=== PATIENT | female | born 1950 | race Caucasian/White ===

== ENCOUNTER 2024-12-08 17:17 | Emergency (ER) | payer MEDICARE, OTHER ==
[~2024-12-08] VITALS: Ht 160 cm; Wt 53.0 kg
[2024-12-08] MEDS: IPRATROPIUM 0.5 MG/ALBUTEROL 2.5 MG INH SOL UD 3 ML NEB ONE (17:54)
[2024-12-08 18:06] LABS: BASO # 0.0 10^3/uL (0.0-0.2); BASO % 0.8 % (0.0-1.0); EOS # 0.1 10^3/uL (0.0-0.5); EOS % 1.6 % (0.0-3.0); LYMPH # 1.1 10^3/uL (1.5-5.0); LYMPH % 22.2 % (24.0-44.0); MONO # 0.4 10^3/uL (0.0-0.8); MONO % 8.5 % (2.0-8.0); NEUTROPHILS # 3.3 10^3/uL (1.5-8.5); NEUTROPHILS % 66.7 % (36.0-66.0); PLATELET COUNT, AUTOMATED 126 10^3/uL (150-450)
[2024-12-08] MEDS ORDERED: ISOVUE-370 76% 100 ML VIAL As Ordered ONE (18:08)
[2024-12-08 18:18] LABS: CK-MB VALUE MASS 2.2 NG/ML (<3.6)
[2024-12-08 18:20] LABS: ALT/SGPT 10 U/L (7.0-40); AST/SGOT 42 U/L (<34); CALCIUM LEVEL 8.5 MG/DL (8.3-10.6); CARBON DIOXIDE LEVEL 24 MMOL/L (20-31); CHLORIDE LEVEL 105 MMOL/L (98-107); CREATININE FOR GFR 1.19 MG/DL (0.55-1.30); GLOMERULAR FILTRATION RATE 47.7 (>39); POTASSIUM SERUM 4.1 MMOL/L (3.5-5.1); SODIUM LEVEL 140 MMOL/L (136-145)
[2024-12-08 18:22] LABS: FREE T4 1.11 NG/DL (0.89-1.76)
[2024-12-08 18:27] LABS: CPK CREATINE PHOSPHOKINASE 62 U/L (34-145); MB/CK RELATIVE INDEX 3.54 (< OR =4)
[2024-12-08 19:22] LABS: CK-MB VALUE MASS 1.5 NG/ML (<3.6)
[2024-12-08 19:24] LABS: CPK CREATINE PHOSPHOKINASE 52.0 U/L (34-145); MB/CK RELATIVE INDEX 2.88 (< OR =4)
[2024-12-08] MEDS ORDERED: EZET10TA21 PO (20:31)
[2024-12-08] MEDS ORDERED: ASPI81CH33 PO (20:31)
[2024-12-08] MEDS ORDERED: AMLO25TA PO (20:31)
[2024-12-08] MEDS ORDERED: LOSA100T46 PO (20:31)
[2024-12-08] MEDS ORDERED: OXYB5TAB14 PO (20:31)
[2024-12-08] MEDS: KETOROLAC 30 MG/ML 1 ML VIAL IV ONE (21:40)
[2024-12-08] MEDS: hydrALAZINE 20 MG/ML 1 ML VIAL IV ONE (23:56)
[2024-12-09] MEDS ORDERED: PRED20TA PO (00:12)
[2024-12-09 00:43] VITALS: BP 152/76; TEMP 97.9; O2SAT 97
== END 2024-12-09 00:45 | disposition home or self-care (01) ==
LOC: EDBD 17:17 → M ED 17:17
DX: R07.89 Other chest pain (principal); I44.0 Atrioventricular block, first degree; I45.10 Unspecified right bundle-branch block; I45.81 Long QT syndrome; I10 Essential (primary) hypertension; E78.5 Hyperlipidemia, unspecified; J44.9 Chronic obstructive pulmonary disease, unspecified; F10.10 Alcohol abuse, uncomplicated; Z87.891 Personal history of nicotine dependence; Z86.73 Personal history of transient ischemic attack (TIA), and cerebral infarction without residual deficits; Z88.8 Allergy status to other drugs, medicaments and biological substances; Z79.1 Long term (current) use of non-steroidal anti-inflammatories (NSAID); Z79.52 Long term (current) use of systemic steroids; Z79.899 Other long term (current) drug therapy
CPT/HCPCS: 71045; 71275; 80047; 80048; 80076; 82550; 82553; 83605; 83690; 83880; 84439; 84443; 84484; 85025; 87486; 87581; 87633; 87798; 93005; 93041; 94640; 94760; 96374; 96375; 99285; J0360; J1885; Q9967

== ENCOUNTER → 2025-01-10 | Outpatient (REF) | payer OTHER ==
[~2025-01-10] MED LIST: AMLO25TA PO; ASPI81CH33 PO; EZET10TA57 PO; LOSA100T46 PO; OXYB5TAB14 PO; PRED20TA PO
== END ==
LOC: M LAB REF 13:18
PROVIDERS: ATTEND Physician Assistant
DX: Z95.0 Presence of cardiac pacemaker (principal)

== ENCOUNTER → 2025-01-10 | Outpatient (CLI) | payer OTHER | LOC: M EKG 16:01 | PROVIDERS: ATTEND Physician Assistant | DX: Z95.0 Presence of cardiac pacemaker (principal); Z53.9 Procedure and treatment not carried out, unspecified reason ==

== ENCOUNTER 2025-02-14 06:33 | Inpatient (IN) | payer OTHER ==
[~2025-02-14] VITALS: Ht 157.5 cm; Wt 52.3 kg
[2025-02-14] MEDS: IPRATROPIUM 0.5 MG/ALBUTEROL 2.5 MG INH SOL UD 3 ML NEB ONE (07:23)
[2025-02-14 07:26] LABS: BASO # 0.1 10^3/uL (0.0-0.2); BASO % 0.5 % (0.0-1.0); EOS # 0.0 10^3/uL (0.0-0.5); EOS % 0.1 % (0.0-3.0); LYMPH # 1.0 10^3/uL (1.5-5.0); LYMPH % 5.2 % (24.0-44.0); MONO # 0.7 10^3/uL (0.0-0.8); MONO % 3.6 % (2.0-8.0); NEUTROPHILS # 17.1 10^3/uL (1.5-8.5); NEUTROPHILS % 90.0 % (36.0-66.0); PLATELET COUNT, AUTOMATED 197 10^3/uL (150-450)
[2025-02-14] MEDS: TETANUS/DIPHTH/ACEL. PERTUSSIS 0.5 ML SYR IM.IMMUN ONE (07:29)
[2025-02-14 07:41] LABS: ABG BASE EXCESS -2.5 (-2.0-2.0); ABG HCO3 17.9 MMOL/L (22.0-26.0); ABG O2 SATURATION 99.0 % (95.0-99.0); ABG PARTIAL PRESSURE CO2 20.8 mmHg (35.0-45.0); ABG PARTIAL PRESSURE O2 165.1 mmHg (75.0-100.0); ABG STANDARD HCO3 22.4 MMOL/L. (22.0-26.0); ABG TOTAL CO2 18.6 MMOL/L (23.0-31.0); ABG pH (ARTERIAL) 7.553 UNITS (7.350-7.450)
[2025-02-14 07:50] LABS: ALT/SGPT 21 U/L (7.0-40); AST/SGOT 55 U/L (<34); CALCIUM LEVEL 9.5 MG/DL (8.3-10.6); CARBON DIOXIDE LEVEL 20 MMOL/L (20-31); CHLORIDE LEVEL 94 MMOL/L (98-107); CK-MB VALUE MASS 3.6 NG/ML (<3.6); CPK CREATINE PHOSPHOKINASE 110 U/L (34-145); CREATININE FOR GFR 1.64 MG/DL (0.55-1.30); GLOMERULAR FILTRATION RATE 32.5 (>39); MB/CK RELATIVE INDEX 3.27 (< OR =4); POTASSIUM SERUM 4.0 MMOL/L (3.5-5.1); SODIUM LEVEL 129 MMOL/L (136-145)
[2025-02-14 07:51] LABS: INR 0.95
[2025-02-14] MEDS: NS (Normal Saline) 0.9% 1,000 ML IV ONE (08:48)
[2025-02-14 09:01] LABS: APPEARANCE, URINE CLEAR (CLEAR); BACTERIA, URINE AUTO NEGATIVE (NEGATIVE); BILIRUBIN, URINE AUTO NEGATIVE (NEGATIVE); BLOOD, URINE BLOOD NEGATIVE (NEGATIVE); GLUCOSE, URINE (UA) AUTO NEGATIVE (NEGATIVE); KETONE, URINE AUTO NEGATIVE (NEGATIVE); LEUKOCYTE ESTERASE, URINE AUTO NEGATIVE (NEGATIVE); MUCUS, URINE SMALL (NEGATIVE); NITRITE, URINE AUTO NEGATIVE (NEGATIVE); PROTEIN, URINE AUTO 2+ mg/dL (NEGATIVE); RBC, URINE AUTO 1 /HPF (0-3); SPECIFIC GRAVITY URINE AUTO 1.010 (1.002-1.035); SQUAMOUS EPITHELIAL CELL UR AU 2 /HPF (0-6); UROBILINOGEN, URINE AUTO 0.2 mg/dL (0.0-2.0); WBC, URINE AUTO 2 /HPF (0-3)
[2025-02-14] MEDS: LIDOCAINE 2% 5 ML JELLY UROJET TOP ONE ×2 (09:03→09:04)
[2025-02-14] MEDS: PIPERACILLIN/TAZOBACTAM SOD 4.5 GM in DEXTROSE 5% (D5W) ADV/MINI-BAG 50 ML IV ONE (09:05)
[2025-02-14 09:11] LABS: FREE T4 1.40 NG/DL (0.89-1.76)
[2025-02-14 09:17] LABS: SODIUM,RANDOM URINE 80.0 MMOL/L
[2025-02-14 09:19] LABS: CK-MB VALUE MASS 2.8 NG/ML (<3.6)
[2025-02-14 09:34] LABS: OSMOLALITY SERUM 282 MOSM/KG (280-301)
[2025-02-14 09:38] LABS: CPK CREATINE PHOSPHOKINASE 109.0 U/L (34-145); MB/CK RELATIVE INDEX 2.56 (< OR =4)
[2025-02-14] MEDS: NS (Normal Saline) 0.9% 600 ML IV ONE (09:38)
[2025-02-14 09:39] LABS: CK-MB VALUE MASS 2.8 NG/ML (<3.6)
[2025-02-14 09:41] LABS: CPK CREATINE PHOSPHOKINASE 100.0 U/L (34-145); MB/CK RELATIVE INDEX 2.8 (< OR =4)
[2025-02-14] MEDS ORDERED: MED REC IN PROGRESS XX SCH (10:25)
[2025-02-14] MEDS ORDERED: REFRSOL OU (10:40)
[2025-02-14] MEDS ORDERED: B-12100021 PO (10:40)
[2025-02-14] MEDS ORDERED: COMBAER6 INH (10:40)
[2025-02-14] MEDS ORDERED: ASPI81TA26 PO (10:40)
[2025-02-14] MEDS ORDERED: AMLO1TAB25 PO (10:40)
[2025-02-14] MEDS ORDERED: HOME MED LIST COMPLETE! XX SCH (10:45)
[2025-02-14] MEDS ORDERED: PIPERACILLIN/TAZOBACTAM SOD 3.375 GM in DEXTROSE 5% (D5W) ADV/MINI-BAG 50 ML IV SCH (10:55)
[2025-02-14] MEDS ORDERED: COMBIVENT RESPIMAT 100-20 MCG INHALER 4 GM INH PRN (11:00)
[2025-02-14 11:20] LABS: BASO # 0.0 10^3/uL (0.0-0.2); BASO % 0.1 % (0.0-1.0); EOS # 0.0 10^3/uL (0.0-0.5); EOS % 0.0 % (0.0-3.0); LYMPH # 0.5 10^3/uL (1.5-5.0); LYMPH % 3.4 % (24.0-44.0); MONO # 0.2 10^3/uL (0.0-0.8); MONO % 1.2 % (2.0-8.0); NEUTROPHILS # 13.0 10^3/uL (1.5-8.5); NEUTROPHILS % 94.7 % (36.0-66.0); PLATELET COUNT, AUTOMATED 183 10^3/uL (150-450)
[2025-02-14 11:20] LABS: PLATELET COUNT, AUTOMATED 187 10^3/uL (150-450)
[2025-02-14 11:47] LABS: CALCIUM LEVEL 8.5 MG/DL (8.3-10.6); CARBON DIOXIDE LEVEL 17 MMOL/L (20-31); CHLORIDE LEVEL 101 MMOL/L (98-107); CREATININE FOR GFR 1.61 MG/DL (0.55-1.30); GLOMERULAR FILTRATION RATE 33.2 (>39); POTASSIUM SERUM 3.9 MMOL/L (3.5-5.1); SODIUM LEVEL 133 MMOL/L (136-145)
[2025-02-14 12:03] LABS: C REACTIVE PROTEIN QUANTITATIV 0.76 MG/DL (<1.0)
[2025-02-14] MEDS: NS (Normal Saline) 0.9% 1,000 ML IV SCH (12:11)
[2025-02-14] MEDS: amLODIPine 10 MG TAB PO ONE (12:11)
[2025-02-14 12:33] LABS: THYROID PEROXIDASE ANTIBODY < 28.0 U/ML (<60.0)
[2025-02-14] MEDS: LABETALOL 100 MG/20 ML VIAL IV STA (13:25)
[2025-02-14] MEDS: HYDROMORPHONE HCL 0.5 MG/0.5 ML SYRINGE IV PRN (14:56)
[2025-02-14] MEDS: LABETALOL 100 MG/20 ML VIAL IV PRN (14:56)
[2025-02-14 15:45] VITALS: BP 164/71; TEMP 99.7; O2SAT 100
[2025-02-14] MEDS: PIPERACILLIN/TAZOBACTAM SOD 2.25 GM in DEXTROSE 5% (D5W) ADV/MINI-BAG 50 ML IV SCH (16:37)
[2025-02-14 18:45] LABS: MAGNESIUM LEVEL 1.2 MG/DL (1.8-2.4)
[2025-02-14 20:00] VITALS: BP 117/56; TEMP 99.1; O2SAT 100
[2025-02-14] MEDS: MAG SULF 1GM/100ML (MAG RUN) 1 GM in IV 1 EA IV SCH (20:27)
[2025-02-14] MEDS: amLODIPine 10 MG TAB PO SCH (20:28)
[2025-02-14] MEDS: HEPARIN SOD 5000 UNITS/ML 1 ML VIAL/SYRINGE SQ SCH (21:40)
[2025-02-15] VITALS (8 sets, daily range): BP systolic 101–156; BP diastolic 52–72; TEMP 98.2–99.3; O2SAT 96–100
[2025-02-15 04:50] LABS: PLATELET COUNT, AUTOMATED 156 10^3/uL (150-450)
[2025-02-15 05:12] LABS: CALCIUM LEVEL 7.8 MG/DL (8.3-10.6); CARBON DIOXIDE LEVEL 20.0 MMOL/L (20-31); CHLORIDE LEVEL 103.0 MMOL/L (98-107); CREATININE FOR GFR 1.89 MG/DL (0.55-1.30); GLOMERULAR FILTRATION RATE 27.4 (>39); POTASSIUM SERUM 4.3 MMOL/L (3.5-5.1); SODIUM LEVEL 135.0 MMOL/L (136-145)
[2025-02-15] MEDS: ASPIRIN 81 MG ENTERIC TABLET PO SCH (08:14)
[2025-02-15] MEDS: EZETIMIBE 10 MG TABLET PO SCH (08:14)
[2025-02-16] VITALS (7 sets, daily range): BP systolic 129–163; BP diastolic 61–74; TEMP 97.3–98.8; O2SAT 97–100
[2025-02-16] MEDS: HYDROMORPHONE HCL 0.5 MG/0.5 ML SYRINGE IV PRN (01:06)
[2025-02-16] MEDS ORDERED: MIDAZOLAM INJ 2 MG/2 ML VIAL As Ordered ONE (08:24)
[2025-02-16] MEDS ORDERED: SUGAMMADEX SODIUM 500 MG/5 ML VIAL As Ordered ONE (08:25)
[2025-02-16] MEDS ORDERED: ROCURONIUM BROMIDE 50MG/5ML VIAL As Ordered ONE (08:25)
[2025-02-16] MEDS ORDERED: dexAMETHasone 4 MG/ML 1 ML VIAL As Ordered ONE (08:26)
[2025-02-16] MEDS ORDERED: LIDOCAINE 2% 100 MG/5 ML SDV (FOR ANES.) As Ordered ONE (08:26)
[2025-02-16] MEDS ORDERED: ONDANSETRON 4MG/2ML VIAL As Ordered ONE (08:26)
[2025-02-16] MEDS ORDERED: dexmedeTOMIDine (4 MCG/ML) 200 MCG/50 ML BTL As Ordered ONE (08:31)
[2025-02-16] MEDS ORDERED: ACETAMINOPHEN 1000MG/100ML IV BAG As Ordered ONE (08:33)
[2025-02-16 09:29] LABS: BASO # 0.1 10^3/uL (0.0-0.2); BASO % 0.5 % (0.0-1.0); EOS # 0.0 10^3/uL (0.0-0.5); EOS % 0.3 % (0.0-3.0); LYMPH # 1.3 10^3/uL (1.5-5.0); LYMPH % 11.5 % (24.0-44.0); MONO # 0.8 10^3/uL (0.0-0.8); MONO % 6.7 % (2.0-8.0); NEUTROPHILS # 9.3 10^3/uL (1.5-8.5); NEUTROPHILS % 80.7 % (36.0-66.0); PLATELET COUNT, AUTOMATED 158 10^3/uL (150-450)
[2025-02-16 10:03] LABS: CALCIUM LEVEL 8.4 MG/DL (8.3-10.6); CARBON DIOXIDE LEVEL 19.0 MMOL/L (20-31); CHLORIDE LEVEL 104.0 MMOL/L (98-107); CREATININE FOR GFR 1.3 MG/DL (0.55-1.30); GLOMERULAR FILTRATION RATE 42.9 (>39); POTASSIUM SERUM 3.4 MMOL/L (3.5-5.1); SODIUM LEVEL 135.0 MMOL/L (136-145)
[2025-02-16] MEDS ORDERED: HYDROMORPHONE HCL 0.5 MG/0.5 ML SYRINGE IV PRN (11:35)
[2025-02-16] MEDS ORDERED: ONDANSETRON 4MG/2ML VIAL IV PRN (11:35)
[2025-02-16] MEDS: LR 1,000 ML IV SCH (14:22)
[2025-02-16] MEDS: POTASSIUM CHLORIDE 10MEQ SR TABLET PO ONE (14:22)
[2025-02-16] MEDS: ceFAZolin SODIUM 2 GM in DEXTROSE 5% (D5W) ADV/MINI-BAG 50 ML IV SCH (18:13)
[2025-02-17] VITALS (14 sets, daily range): BP systolic 142–183; BP diastolic 64–87; TEMP 97.9–100; O2SAT 97–100
[2025-02-17] MEDS: ONDANSETRON 4MG/2ML VIAL IV PRN (01:52)
[2025-02-17 05:46] LABS: PLATELET COUNT, AUTOMATED 143 10^3/uL (150-450)
[2025-02-17 09:40] LABS: IRON (FE) 17.0 UG/DL (50-170); PERCENT SATURATION 6.8 % (13.2-45.0)
[2025-02-17 12:09] LABS: CALCIUM LEVEL 8.3 MG/DL (8.3-10.6); CARBON DIOXIDE LEVEL 20.0 MMOL/L (20-31); CHLORIDE LEVEL 102.0 MMOL/L (98-107); CREATININE FOR GFR 1.19 MG/DL (0.55-1.30); GLOMERULAR FILTRATION RATE 47.7 (>39); POTASSIUM SERUM 4.2 MMOL/L (3.5-5.1); SODIUM LEVEL 135.0 MMOL/L (136-145)
[2025-02-17] MEDS: FERRIC CARBOXYMALTOSE INJ 750 MG, VIAL MATE ADAPTER 1 EACH in NS 100 ML IV ONE (13:20)
[2025-02-17] MEDS: METOPROLOL TART 50 MG TAB PO ONE (13:21)
[2025-02-17 15:54] LABS: BASO # 0.0 10^3/uL (0.0-0.2); BASO % 0.3 % (0.0-1.0); EOS # 0.1 10^3/uL (0.0-0.5); EOS % 0.5 % (0.0-3.0); LYMPH # 1.4 10^3/uL (1.5-5.0); LYMPH % 11.2 % (24.0-44.0); MONO # 1.0 10^3/uL (0.0-0.8); MONO % 8.1 % (2.0-8.0); NEUTROPHILS # 9.6 10^3/uL (1.5-8.5); NEUTROPHILS % 79.3 % (36.0-66.0); PLATELET COUNT, AUTOMATED 143 10^3/uL (150-450)
[2025-02-17] MEDS: METOPROLOL TART 25 MG TABLET PO SCH (20:33)
[2025-02-18] VITALS (7 sets, daily range): BP systolic 123–160; BP diastolic 70–82; TEMP 97.2–98.6; O2SAT 97–100
[2025-02-18 07:20] LABS: BASO # 0.0 10^3/uL (0.0-0.2); BASO % 0.3 % (0.0-1.0); EOS # 0.0 10^3/uL (0.0-0.5); EOS % 0.2 % (0.0-3.0); LYMPH # 1.1 10^3/uL (1.5-5.0); LYMPH % 7.2 % (24.0-44.0); MONO # 1.0 10^3/uL (0.0-0.8); MONO % 6.6 % (2.0-8.0); NEUTROPHILS # 13.0 10^3/uL (1.5-8.5); NEUTROPHILS % 85.1 % (36.0-66.0); PLATELET COUNT, AUTOMATED 191 10^3/uL (150-450)
[2025-02-18 07:45] LABS: CALCIUM LEVEL 8.6 MG/DL (8.3-10.6); CARBON DIOXIDE LEVEL 23 MMOL/L (20-31); CHLORIDE LEVEL 93 MMOL/L (98-107); CREATININE FOR GFR 0.96 MG/DL (0.55-1.30); GLOMERULAR FILTRATION RATE 61.7 (>39); POTASSIUM SERUM 3.8 MMOL/L (3.5-5.1); SODIUM LEVEL 129 MMOL/L (136-145)
[2025-02-18] MEDS: NS 500 ML IV ONE (09:03)
[2025-02-18 09:51] LABS: C REACTIVE PROTEIN QUANTITATIV 11.18 MG/DL (<1.0)
[2025-02-18 13:15] LABS: CALCIUM LEVEL 8.9 MG/DL (8.3-10.6); CARBON DIOXIDE LEVEL 25.0 MMOL/L (20-31); CHLORIDE LEVEL 95.0 MMOL/L (98-107); CREATININE FOR GFR 0.97 MG/DL (0.55-1.30); GLOMERULAR FILTRATION RATE 60.9 (>39); POTASSIUM SERUM 3.8 MMOL/L (3.5-5.1); SODIUM LEVEL 132.0 MMOL/L (136-145)
[2025-02-19 04:00] VITALS: BP 142/73; TEMP 97.9; O2SAT 100
[2025-02-19 08:00] VITALS: BP 143/75; TEMP 97.9; O2SAT 97
[2025-02-19 12:00] VITALS: BP 124/61; TEMP 98.1; O2SAT 97
[2025-02-19 12:51] LABS: CALCIUM LEVEL 8.6 MG/DL (8.3-10.6); CARBON DIOXIDE LEVEL 23.0 MMOL/L (20-31); CHLORIDE LEVEL 97.0 MMOL/L (98-107); CREATININE FOR GFR 1.06 MG/DL (0.55-1.30); GLOMERULAR FILTRATION RATE 54.8 (>39); POTASSIUM SERUM 3.9 MMOL/L (3.5-5.1); SODIUM LEVEL 130.0 MMOL/L (136-145)
[2025-02-19 12:54] LABS: BASO # 0.0 10^3/uL (0.0-0.2); BASO % 0.2 % (0.0-1.0); EOS # 0.1 10^3/uL (0.0-0.5); EOS % 0.9 % (0.0-3.0); LYMPH # 0.9 10^3/uL (1.5-5.0); LYMPH % 6.3 % (24.0-44.0); MONO # 1.1 10^3/uL (0.0-0.8); MONO % 7.4 % (2.0-8.0); NEUTROPHILS # 12.5 10^3/uL (1.5-8.5); NEUTROPHILS % 84.6 % (36.0-66.0)
[2025-02-19 16:00] VITALS: BP 144/70; TEMP 97.7; O2SAT 98
[2025-02-19 20:28] VITALS: BP 129/74; TEMP 98.1; O2SAT 96
[2025-02-20 00:18] VITALS: BP 134/66; TEMP 97.7; O2SAT 98
[2025-02-20 03:41] VITALS: BP 131/66; TEMP 97.7; O2SAT 97
[2025-02-20 05:55] LABS: PLATELET COUNT, AUTOMATED 254 10^3/uL (150-450)
[2025-02-20 08:00] VITALS: BP 131/62; TEMP 97.9; O2SAT 94
[2025-02-20 12:00] VITALS: BP 106/58; TEMP 97.7; O2SAT 93
[2025-02-20 16:00] VITALS: BP 131/74; TEMP 97.7; O2SAT 99
[2025-02-20 19:50] VITALS: BP 109/63; TEMP 97.7; O2SAT 96
[2025-02-21 05:25] VITALS: BP 120/62; TEMP 98.4; O2SAT 91
[2025-02-21 06:34] LABS: PLATELET COUNT, AUTOMATED 260 10^3/uL (150-450)
[2025-02-21 07:07] LABS: CALCIUM LEVEL 8.8 MG/DL (8.3-10.6); CARBON DIOXIDE LEVEL 25.0 MMOL/L (20-31); CHLORIDE LEVEL 100.0 MMOL/L (98-107); CREATININE FOR GFR 1.07 MG/DL (0.55-1.30); GLOMERULAR FILTRATION RATE 54.2 (>39); MAGNESIUM LEVEL 1.6 MG/DL (1.8-2.4); POTASSIUM SERUM 3.8 MMOL/L (3.5-5.1); SODIUM LEVEL 136.0 MMOL/L (136-145)
[2025-02-21] MEDS: MAG SULF 1GM/100ML (MAG RUN) 1 GM in IV 1 EA IV ONE (08:39)
[2025-02-21 09:22] VITALS: BP 96/53; TEMP 97.9; O2SAT 90
[2025-02-21 12:16] VITALS: BP 112/75; TEMP 97.9; O2SAT 99
[2025-02-21 15:50] VITALS: BP 108/71; TEMP 97.9; O2SAT 99
[2025-02-21] MEDS: PERCOCET 5MG/325MG TAB PO PRN (18:17)
[2025-02-21 19:38] VITALS: BP 113/72; TEMP 97.9; O2SAT 97
[2025-02-21] MEDS ORDERED: HYDROMORPHONE HCL 0.5 MG/0.5 ML SYRINGE IV PRN (23:00)
[2025-02-21 23:48] VITALS: BP 120/71; TEMP 97.7; O2SAT 97
[2025-02-22 03:24] VITALS: BP 119/69; TEMP 97.7; O2SAT 97
[2025-02-22 06:26] LABS: PLATELET COUNT, AUTOMATED 246 10^3/uL (150-450)
[2025-02-22 06:50] LABS: CALCIUM LEVEL 8.3 MG/DL (8.3-10.6); CARBON DIOXIDE LEVEL 27.0 MMOL/L (20-31); CHLORIDE LEVEL 97.0 MMOL/L (98-107); CREATININE FOR GFR 1.07 MG/DL (0.55-1.30); GLOMERULAR FILTRATION RATE 54.2 (>39); MAGNESIUM LEVEL 1.8 MG/DL (1.8-2.4); POTASSIUM SERUM 3.8 MMOL/L (3.5-5.1); SODIUM LEVEL 133.0 MMOL/L (136-145)
[2025-02-22 08:00] VITALS: BP 122/69; TEMP 97.8; O2SAT 99
[2025-02-22 12:00] VITALS: BP 126/66; TEMP 97.9; O2SAT 98
[2025-02-22 16:00] VITALS: BP 168/78; TEMP 98.4; O2SAT 100
[2025-02-22 20:00] VITALS: BP 164/87; TEMP 98.1; O2SAT 98
[2025-02-23] VITALS (7 sets, daily range): BP systolic 114–152; BP diastolic 66–92; TEMP 97.9–98.6; O2SAT 88–99
[2025-02-23 06:23] LABS: PLATELET COUNT, AUTOMATED 240 10^3/uL (150-450)
[2025-02-23] MEDS: ACETAMINOPHEN 325 MG TAB PO PRN (08:56)
[2025-02-24 04:00] VITALS: BP 141/80; TEMP 97.9; O2SAT 96
[2025-02-24 12:00] VITALS: BP 144/70; TEMP 98.4; O2SAT 89
[2025-02-24 20:00] VITALS: BP 138/73; TEMP 97.9; O2SAT 93
[2025-02-25] VITALS: BP 157/78; TEMP 97.9; O2SAT 94
[2025-02-25 04:00] VITALS: BP 155/82; TEMP 97.9; O2SAT 96
[2025-02-25 06:20] LABS: PLATELET COUNT, AUTOMATED 243 10^3/uL (150-450)
[2025-02-25 06:53] LABS: ALT/SGPT < 9 U/L (7.0-40); AST/SGOT 49 U/L (<34); CALCIUM LEVEL 8.6 MG/DL (8.3-10.6); CARBON DIOXIDE LEVEL 26 MMOL/L (20-31); CHLORIDE LEVEL 99 MMOL/L (98-107); CREATININE FOR GFR 1.20 MG/DL (0.55-1.30); GLOMERULAR FILTRATION RATE 46.9 (>39); MAGNESIUM LEVEL 1.6 MG/DL (1.8-2.4); POTASSIUM SERUM 4.2 MMOL/L (3.5-5.1); SODIUM LEVEL 134 MMOL/L (136-145)
[2025-02-25] MEDS: MAGNESIUM OXIDE 400 MG TAB PO SCH (09:12)
[2025-02-25] MEDS ORDERED: SALIVA SUBSTITUTE BTL MT PRN (09:50)
[2025-02-25 11:35] VITALS: BP 123/66; TEMP 97.9; O2SAT 94
[2025-02-25 20:27] VITALS: BP 152/73
[2025-02-26 04:19] VITALS: BP 156/81; TEMP 98.1; O2SAT 96
[2025-02-26 07:02] LABS: PLATELET COUNT, AUTOMATED 222 10^3/uL (150-450)
[2025-02-26 07:29] LABS: CALCIUM LEVEL 8.7 MG/DL (8.3-10.6); CARBON DIOXIDE LEVEL 26.0 MMOL/L (20-31); CHLORIDE LEVEL 98.0 MMOL/L (98-107); CREATININE FOR GFR 1.1 MG/DL (0.55-1.30); GLOMERULAR FILTRATION RATE 52.1 (>39); MAGNESIUM LEVEL 1.6 MG/DL (1.8-2.4); POTASSIUM SERUM 4.2 MMOL/L (3.5-5.1); SODIUM LEVEL 134.0 MMOL/L (136-145)
[2025-02-26] MEDS: LACTULOSE 20 GM/30 ML SYRUP UDC PO ONE (09:44)
[2025-02-26] MEDS: MIRALAX *UNIT DOSE* 17 GM PACKET PO PRN (09:44)
[2025-02-26] MEDS: SENNA 8.6 MG TAB PO PRN (09:44)
[2025-02-27 04:00] VITALS: BP 166/88; TEMP 98.9; O2SAT 99
[2025-02-27 09:35] VITALS: BP 136/65
[2025-02-27] MEDS ORDERED: METO1TAB87 PO (11:35)
[2025-02-27] MEDS ORDERED: ASPI81TA26 PO (11:35)
[2025-02-27] MEDS ORDERED: PERCOCET PO (11:35)
[2025-02-27] MEDS ORDERED: MIRA33506 PO (11:35)
[2025-02-27] MEDS ORDERED: MAGN400T33 PO (11:35)
[2025-02-27] MEDS ORDERED: ACET32TAB PO (11:35)
== END 2025-02-27 13:13 | DRG 480 ==
LOC: M ED 06:33 → M ED INP 10:20 → M ICU 15:23 → M MSPAV 02-17 15:40
PROVIDERS: ADMIT Internal Medicine; ATTEND Student in an Organized Health Care Education/Training Program
PROC: B246ZZZ Ultrasonography of Right and Left Heart (ICD-10-PCS; 2025-02-14)
PROC: 30233N1 Transfusion of Nonautologous Red Blood Cells into Peripheral Vein, Percutaneous Approach (ICD-10-PCS; 2025-02-16)
PROC: 0QSC36Z Reposition Left Lower Femur with Intramedullary Internal Fixation Device, Percutaneous Approach (ICD-10-PCS; principal; 2025-02-16 08:30)
DX: S72.412A Displaced unspecified condyle fracture of lower end of left femur, initial encounter for closed fracture (principal); G93.41 Metabolic encephalopathy; N17.9 Acute kidney failure, unspecified; I16.9 Hypertensive crisis, unspecified; E87.20 Acidosis, unspecified; D62 Acute posthemorrhagic anemia; I47.20 Ventricular tachycardia, unspecified; E87.1 Hypo-osmolality and hyponatremia; W10.8XXA Fall (on) (from) other stairs and steps, initial encounter; Y92.018 Other place in single-family (private) house as the place of occurrence of the external cause; Y93.89 Activity, other specified; Y99.8 Other external cause status; I12.9 Hypertensive chronic kidney disease with stage 1 through stage 4 chronic kidney disease, or unspecified chronic kidney disease; E78.5 Hyperlipidemia, unspecified; I25.10 Atherosclerotic heart disease of native coronary artery without angina pectoris; I25.2 Old myocardial infarction; M54.50 Low back pain, unspecified; G89.29 Other chronic pain; J47.9 Bronchiectasis, uncomplicated; I49.5 Sick sinus syndrome; F03.90 Unspecified dementia, unspecified severity, without behavioral disturbance, psychotic disturbance, mood disturbance, and anxiety; R68.0 Hypothermia, not associated with low environmental temperature; N18.9 Chronic kidney disease, unspecified; E86.0 Dehydration; R74.01 Elevation of levels of liver transaminase levels; S32.010D Wedge compression fracture of first lumbar vertebra, subsequent encounter for fracture with routine healing; S22.080D Wedge compression fracture of T11-T12 vertebra, subsequent encounter for fracture with routine healing; E83.42 Hypomagnesemia; Z79.82 Long term (current) use of aspirin; Z88.8 Allergy status to other drugs, medicaments and biological substances; Z95.0 Presence of cardiac pacemaker; Z79.899 Other long term (current) drug therapy; Z95.3 Presence of xenogenic heart valve

== ENCOUNTER → 2025-03-18 | Outpatient (CLI) | payer OTHER ==
[~2025-03-18] MED LIST changes: +ACET32TAB PO; +AMLO1TAB25 PO; +ASPI81TA26 PO; +B-12100021 PO; +COMBAER6 INH; +MAGN400T33 PO; +METO1TAB87 PO; +MIRA33506 PO; +PERCOCET PO; +REFRSOL OU
== END ==
LOC: M SOG 07:35
PROVIDERS: ATTEND Orthopaedic Surgery
DX: S72.492A Other fracture of lower end of left femur, initial encounter for closed fracture (principal); W18.30XA Fall on same level, unspecified, initial encounter; Y92.009 Unspecified place in unspecified non-institutional (private) residence as the place of occurrence of the external cause

== ENCOUNTER → 2025-04-15 | Outpatient (CLI) | payer OTHER | LOC: M SOG 04-12 13:48 | PROVIDERS: ATTEND Physician Assistant | DX: S72.492D Other fracture of lower end of left femur, subsequent encounter for closed fracture with routine healing (principal) ==